=== PATIENT | male | born 1980 | race American Indian/Alaskan Native ===

== ENCOUNTER 2018-12-27 23:10 | Emergency (ER) | payer MEDICAID ==
[2018-12-27 23:14] VITALS: RESP 18; O2SAT 100
--- NOTE | 2018-12-28 01:26 | ED PDOC ---
HPI: General Adult Time Seen by Provider: 12/28/18 00:03 Chief Complaint (Nursing): Medical Clearance History Per: Patient Additional Complaint(s): Pt. requesting for a bed to sleeping as he is homeless. Offers no complaints. Denies knee pain contrary to triage note. Past Medical History Reviewed: Historical Data, Nursing Documentation, Vital Signs Vital Signs: Last Vital Signs Temp 96.8 F L 12/27/18 23:13 Pulse 80 12/27/18 23:13 Resp 18 12/27/18 23:13 BP 127/75 12/27/18 23:13 Pulse Ox 100 12/27/18 23:13 - Surgical History Surgical History: No Surg Hx - Family History Family History: States: No Known Family Hx - Allergies Allergies/Adverse Reactions: Allergies Allergy/AdvReac Type Severity Reaction Status Date / Time No Known Allergies Allergy Verified 12/27/18 23:12 Review of Systems ROS Statement: Except As Marked, All Systems Reviewed And Found Negative Physical Exam - Physical Exam Appears: Positive for: Well, Non-toxic, No Acute Distress Head Exam: Positive for: ATRAUMATIC, NORMAL INSPECTION, NORMOCEPHALIC Skin: Positive for: Normal Color, Warm. Negative for: Rash Eye Exam: Positive for: Normal appearance Cardiovascular/Chest: Positive for: Regular Rate, Rhythm Respiratory: Positive for: Normal Breath Sounds Gastrointestinal/Abdominal: Positive for: Soft. Negative for: Tenderness Neurological/Psych: Positive for: Awake, Alert, Oriented (x3), Mood/Affect (calm, cooperative), Gait (steady, unassited) - ECG O2 Sat by Pulse Oximetry: 100 Disposition - Clinical Impression Clinical Impression: Malingerer - Patient ED Disposition Is Patient to be Admitted: No - Disposition Disposition: Routine/Home Disposition Time: 00:25 Condition: STABLE Instructions: General (DC) Forms: [employer] (Turkmen)
[2018-12-28 03:59] VITALS: BP 120/74; PULSE 86; TEMP 97.9
== END 2018-12-28 03:20 | disposition home or self-care (01) ==
LOC: H.ER 23:10
DX: Z76.5 Malingerer [conscious simulation] (principal); Z59.0 Homelessness